=== PATIENT | male | born 1960 | race African-American/Black ===

== ENCOUNTER 2016-11-22 11:42 | Emergency (ER) | payer OTHER ==
[~2016-11-22] VITALS: Ht 165.1 cm; Wt 72.6 kg
[~2016-11-22 11:42] MED LIST: IBUPROFEN800 MG ORAL; NORCO 5-325 TA1 EACH ORAL
[2016-11-22 11:54] VITALS: BP 106/67
[2016-11-22] MEDS ORDERED: IBUPROFEN600 MG ORAL (12:14)
[2016-11-22 12:16] VITALS: BP 106/67
--- NOTE | 2016-11-22 13:44 | Emergency Room Report ---
History of Present Illness General Chief Complaint: Pain Source: Patient Present Illness HPI 56-year-old male no significant past medical history presenting with bump on right groin for 2 days. Patient states it occurred after he did some heavy lifting. Patient states that this has never occurred before. Patient states pain to area, intermittent, however has been able to reduce the swelling. Denies any abdominal pain nausea vomiting constipation. Patient has been passing gas Allergies: Coded Allergies: No Known Allergies (Unverified , 07/14/14) Patient History Past Medical History: see triage record Past Surgical History: none Pertinent Family History: none Reviewed Nursing Documentation: PMH: Agreed, PSxH: Agreed Nursing Documentation-PMH Hx Cardiac Problems: No Hx Hypertension: No Hx Pacemaker: No Hx Asthma: No Hx COPD: No Hx Diabetes: No Hx Cancer: No Hx Gastrointestinal Problems: No Hx Dialysis: No Hx Neurological Problems: No Hx Cerebrovascular Accident: No Hx Seizures: No Review of Systems All Other Systems: negative except mentioned in HPI Physical Exam Vital Signs Date Time Temp Pulse Resp B/P (MAP) Pulse Ox O2 Delivery O2 Flow Rate FiO2 11/22/16 11:49 97.9 56 15 103/64 97 Room Air Sp02 EP Interpretation: reviewed, normal General Appearance: normal inspection, well appearing, no apparent distress, alert, GCS 15, non-toxic Head: normocephalic, atraumatic Eyes: bilateral eye normal inspection, bilateral eye PERRL, bilateral eye EOMI ENT: normal ENT inspection, normal pharynx, normal voice, moist mucus membranes Neck: normal inspection, full range of motion, supple Respiratory: normal inspection, lungs clear, normal breath sounds, no respiratory distress, no retraction, no wheezing, speaking full sentences, chest symmetrical Cardiovascular #1: normal inspection, regular rate, rhythm, no edema, normal capillary refill Cardiovascular #2: 2+ radial (R), 2+ radial (L) Gastrointestinal: normal inspection, non tender, soft, non-distended, no guarding Genitourinary: no CVA tenderness, other - Right-sided inguinal hernia, reducible, mildly tender to palpation Musculoskeletal: normal inspection, back normal, normal range of motion, non- tender Neurologic: normal inspection, alert, oriented x3, responsive, motor strength/ tone normal, sensory intact, normal gait, speech normal Psychiatric: normal inspection, judgement/insight normal, memory normal Skin: normal inspection, normal color, no rash, warm/dry, well hydrated, normal turgor Medical Decision Making Diagnostic Impression: Primary Impression: Inguinal hernia ER Course 56 yo M. with right-sided inguinal swelling DDX: Reducible inguinal hernia Plan: Pain control ER course: Patient has remained stable during ED stay. Pain improved medications Disposition: Patient is to be discharged to home. Patient is instructed to follow up with their primary care doctor within 5 days. Patient is instructed to follow up with general surgeon within one week for followup for hernia Strict return precautions discussed with patient such as fever, chills, worsening/severe pain, nausea, vomiting, which may indicate severe illness. Patient verbalizes understanding and agrees with plan. Please note that this Emergency Department Report was dictated using [employer]Data[employer]al services assistant technology software, occasionally this can lead to erroneous entry secondary to interpretation by the dictation equipment Last Vital Signs Date Time Temp Pulse Resp B/P (MAP) Pulse Ox O2 Delivery O2 Flow Rate FiO2 11/22/16 12:16 98.0 58 17 106/67 98 Room Air Disposition: HOME, SELF-CARE Condition: Improved Scripts Ibuprofen* (MOTRIN*) 600 Mg Tablet 600 MG ORAL Q8H Y for For Pain, #30 TAB 0 Refills Prov: Ruben Sargent M.D. 11/22/16 Patient Instructions: Inguinal Hernia, Adult, [id number] Additional Instructions: Please followup with your primary care doctor within 5 days. Please followup with the general surgeon within one week for your inguinal hernia Is return to the emergency room if you are experiencing severe persistent pain, nausea vomiting, inability to have a bowel movement or pass gas Ruben Sargent M.D. Nov 22, 2016 13:44
== END 2016-11-22 12:30 | disposition home or self-care (01) ==
LOC: EMR 12:03
DX: K40.90 Unilateral inguinal hernia, without obstruction or gangrene, not specified as recurrent (principal)
CPT/HCPCS: 99283

== ENCOUNTER 2016-11-26 06:19 | Emergency (ER) | payer OTHER ==
[~2016-11-26] VITALS: Ht 165.1 cm; Wt 69.4 kg
[~2016-11-26 06:19] MED LIST changes: +IBUPROFEN600 MG ORAL
[2016-11-26 06:41] VITALS: BP 136/68
[2016-11-26] MEDS ORDERED: COLACE100 MG ORAL (06:56)
[2016-11-26 07:00] VITALS: BP 130/70
[2016-11-26 07:10] VITALS: BP 130/70
--- NOTE | 2016-11-26 08:39 | Emergency Room Report ---
History of Present Illness General Chief Complaint: Abdominal Pain Source: Patient Present Illness HPI Patient presents with complaints of right sided a little discomfort Patient reports that he was constipated for the past 2 days and he felt that pushing admit the area worse Patient reports contacting his primary physician Reports a consultation for specialty was made for 3 weeks However he does not feel that that is early enough Denies any vomiting denies any diarrhea Denies any other abdominal pain patient points to the right inguinal region for the discomfort Describes as achy and 3 at 10 Allergies: Coded Allergies: No Known Allergies (Unverified , 07/14/14) Patient History Past Medical History: see triage record Pertinent Family History: none Reviewed Nursing Documentation: PMH: Agreed, PSxH: Agreed Nursing Documentation-PMH Hx Cardiac Problems: No Hx Hypertension: No Hx Pacemaker: No Hx Asthma: No Hx COPD: No Hx Diabetes: No Hx Cancer: No Hx Gastrointestinal Problems: Yes - HERNIA Hx Dialysis: No Hx Neurological Problems: No Hx Cerebrovascular Accident: No Hx Seizures: No Review of Systems All Other Systems: negative except mentioned in HPI Physical Exam Vital Signs Date Time Temp Pulse Resp B/P (MAP) Pulse Ox O2 Delivery O2 Flow Rate FiO2 11/26/16 06:22 97.9 55 18 129/76 98 Room Air Sp02 EP Interpretation: reviewed, normal General Appearance: well appearing, no apparent distress Head: normocephalic, atraumatic Eyes: bilateral eye PERRL, bilateral eye EOMI ENT: hearing grossly normal, normal pharynx, TMs + canals normal, uvula midline Neck: full range of motion, supple, no meningismus, no bony tend Respiratory: lungs clear, normal breath sounds, no rhonchi, no respiratory distress, no retraction, no accessory muscle use Cardiovascular #1: normal peripheral pulses, regular rate, rhythm, no edema, no gallop, no JVD, no murmur Gastrointestinal: normal bowel sounds, non tender, soft, no mass, no organomegaly, non-distended, no guarding, no pulsatile mass, no rebound, hernia - Patient has a right-sided inguinal hernia which extends into the scrotal area , very soft on palpation Genitourinary: no CVA tenderness Musculoskeletal: normal inspection Neurologic: oriented x3, responsive, patient support representative III-XII nml as tested, motor strength/ tone normal, sensory intact Psychiatric: mood/affect normal Skin: normal color, no rash, warm/dry Lymphatic: normal inspection, no adenopathy Medical Decision Making Diagnostic Impression: Primary Impression: Inguinal hernia ER Course With the history exam and presentation, multiple differentials considered, including but not limited to appendicitis, gastritis, cholecystitis, diverticulitis Other differentials of incarcerated hernia, versus strangulated hernia considered Patient's hernia is very soft and easily reducible Patient is having appropriate bowel movements I did discuss with him possible CT imaging with oral contrast however this usually is a clinical evaluation was has not required this imaging After further discussion he is agreeable with this I did place him on stool softeners However the patient did leave prior to getting that prescription And stable for close outpatient follow Last Vital Signs Date Time Temp Pulse Resp B/P (MAP) Pulse Ox O2 Delivery O2 Flow Rate FiO2 11/26/16 07:10 97.6 68 19 130/70 100 Room Air Status: unchanged Disposition: HOME, SELF-CARE Condition: Stable Scripts Docusate Sodium* (COLACE*) 100 Mg Capsule 100 MG ORAL THREE TIMES A DAY, #60 CAP Prov: IRIS BANSAL D.O. 11/26/16 Referrals: NON PHYSICIAN (PCP) Patient Instructions: Inguinal Hernia, Adult, [id number] Additional Instructions: Patient is provided with the discharge instructions notified to follow up with primary doctor in the next 2-3 days otherwise return to the er with any worsening symptoms. Please note that this report is being documented using DGTS technology. This can lead to erroneous entry secondary to incorrect interpretation by the dictating instrument. IRIS BANSAL D.O. Nov 26, 2016 08:39
== END 2016-11-26 07:10 | disposition home or self-care (01) ==
LOC: EMR 06:44
DX: K40.90 Unilateral inguinal hernia, without obstruction or gangrene, not specified as recurrent (principal)
CPT/HCPCS: 99283

== ENCOUNTER 2017-04-10 16:57 | Emergency (ER) | payer OTHER ==
[~2017-04-10] VITALS: Ht 165.1 cm; Wt 72.6 kg
[~2017-04-10 16:57] MED LIST changes: +COLACE100 MG ORAL
[2017-04-10] MEDS ORDERED: NKM (17:10)
[2017-04-10 17:17] VITALS: BP 108/66
--- NOTE | 2017-04-10 18:31 | Emergency Room Report ---
History of Present Illness General Chief Complaint: Skin Rash/Abscess Source: Patient Present Illness HPI 57-year-old male presents to the emergency department complaining of non-itchy rash to the right upper lip/mustache area times one week. Patient reports that he first noticed what looked like a pimple that he later believes he aggravated with using tweezers and then shaving his face the next day. Patient denies fevers, chills, burning sensation prior to reduction, or previous history of similar episodes. Denies lesions elsewhere on the body. Denies lesions/rashes elsewhere on the body. Denies new medications or body washes or creams. Denies swelling of the lips, tongue , throat or airway. Denies wheezing, or shortness of breath. Denies recent travel, recent illness or ill contacts. denies blisters, oral lesions, or sloughing of the skin. Allergies: Coded Allergies: No Known Allergies (Unverified , 07/14/14) Patient History Past Medical History: see triage record Past Surgical History: none Pertinent Family History: none Reviewed Nursing Documentation: PMH: Agreed, PSxH: Agreed Nursing Documentation-PMH Past Medical History: No Stated History Hx Cardiac Problems: No Hx Hypertension: No Hx Pacemaker: No Hx Asthma: No Hx COPD: No Hx Diabetes: No Hx Cancer: No Hx Gastrointestinal Problems: Yes - HERNIA Hx Dialysis: No Hx Neurological Problems: No Hx Cerebrovascular Accident: No Hx Seizures: No Review of Systems All Other Systems: negative except mentioned in HPI Physical Exam Vital Signs Date Time Temp Pulse Resp B/P (MAP) Pulse Ox O2 Delivery O2 Flow Rate FiO2 04/10/17 17:07 98.8 64 16 108/66 96 Room Air Sp02 EP Interpretation: reviewed, normal General Appearance: no apparent distress, alert, GCS 15, non-toxic Head: normocephalic, atraumatic ENT: hearing grossly normal, normal voice Respiratory: lungs clear, normal breath sounds, speaking full sentences Cardiovascular #1: regular rate, rhythm Rectal: deferred Musculoskeletal: back normal, gait/station normal, normal range of motion, non- tender Neurologic: alert, oriented x3, responsive, motor strength/tone normal, sensory intact, normal gait, speech normal, grossly normal Psychiatric: judgement/insight normal Skin: normal color, warm/dry, well hydrated, rash - well localized area of the right lower cheek with multiple pustules and crusting. localized alopecia noted. no blisters. Lymphatic: no adenopathy Medical Decision Making PA Attestation Dr. Crouch is my supervising physician whom pt. management has been discussed with. Diagnostic Impression: Primary Impression: Folliculitis barbae ER Course 57-year-old male presents to the emergency department complaining of non-itchy rash to the right upper lip/mustache area times one week. Patient reports that he first noticed what looked like a pimple that he later believes he aggravated with using tweezers and then shaving his face the next day. Patient denies fevers, chills, burning sensation prior to reduction, or previous history of similar episodes. Denies lesions elsewhere on the body. Denies lesions/rashes elsewhere on the body. Denies new medications or body washes or creams. Denies swelling of the lips, tongue , throat or airway. Denies wheezing, or shortness of breath. Denies recent travel, recent illness or ill contacts. denies blisters, oral lesions, or sloughing of the skin. Ddx considered but are not limited to cellulitis, scabies, shingles, varicella, dermatitis, urticaria, eczema, tinea, viral exanthem, SJS Vital signs: are WNL, pt. is afebrile H&PE are most consistent with folliculitis barbae, no vesicles or blisters noted, no evidence of impending airway compromise. ORDERS: none required at this time, the diagnosis is clinical ED INTERVENTIONS: None required at this time. -I do not identify an emergent condition at this time. With current presentation , pt. is stable for close outpatient follow up and conservative treatment. D/ w pt. to return promptly to ED with worsening or new symptoms.- Pt. (and or responsible libertarian) verbalizes' understanding and agreement with proposed treatment plan.proposed treatment plan. DISCHARGE: At this time pt. is stable for d/c to home. Will provide printed patient care instructions, and any necessary prescriptions. Care plan and follow up instructions have been discussed with the patient prior to discharge. Last Vital Signs Date Time Temp Pulse Resp B/P (MAP) Pulse Ox O2 Delivery O2 Flow Rate FiO2 04/10/17 17:17 98.8 16 108/66 96 Room Air 04/10/17 17:07 64 Disposition: HOME, SELF-CARE Condition: Stable Scripts Terbinafine Hcl (LAMISIL AT) 12 Gm Gel..gram. 1 APPLIC TP BID, #12 GM Prov: Selena Mccartney 04/10/17 Cephalexin* (KEFLEX*) 500 Mg Capsule 500 MG ORAL EVERY 12 HOURS for 7 Days, #14 CAP 0 Refills Prov: Selena Mccartney 04/10/17 Patient Instructions: Rash Additional Instructions: Take medications as directed. Follow up with a Primary Care Provider in 3-5 days, even if your symptoms persist: MANAGER OF FINANCIAL Shravan is recommended. --Please review list of primary care clinics, if you do not already have a primary care provider Return sooner to ED if new symptoms occur, or current symptoms become worse. - Please note that this Emergency Department Report was dictated using [employer] worker technology software, occasionally this can lead to erroneous entry secondary to interpretation by the dictation equipment. Selena Mccartney Apr 10, 2017 18:31
[2017-04-10] MEDS ORDERED: LAMISIL AT12 GM TP ×2 (18:34→18:36)
[2017-04-10] MEDS ORDERED: CEPHALEXIN500 MG ORAL ×2 (18:34→18:36)
[2017-04-10 19:01] VITALS: BP 108/66
== END 2017-04-10 19:01 | disposition home or self-care (01) ==
LOC: EMR 17:30
DX: L73.9 Follicular disorder, unspecified (principal)
CPT/HCPCS: 99283

== ENCOUNTER 2017-06-19 09:24 | Emergency (ER) | payer OTHER ==
[~2017-06-19] VITALS: Ht 165.1 cm; Wt 72.6 kg
[~2017-06-19 09:24] MED LIST changes: +CEPHALEXIN500 MG ORAL; +LAMISIL AT12 GM TP; +NKM
[2017-06-19] MEDS ORDERED: Ketorolac 60mg Inj IM ONE (09:45)
[2017-06-19] MEDS ORDERED: Norco 5mg/325mg tab ORAL ONE (09:45)
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
[2017-06-19] MEDS ORDERED: IBUPROFEN600 MG ORAL (10:02)
[2017-06-19] MEDS ORDERED: ROBAXIN-750750 MG PO (10:02)
[2017-06-19 10:17] VITALS: BP 133/85
== END 2017-06-19 10:17 | disposition home or self-care (01) ==
LOC: EMR 09:45
DX: M54.5 Low back pain (principal); M54.2 Cervicalgia; V43.52XA Car driver injured in collision with other type car in traffic accident, initial encounter; Y92.410 Unspecified street and highway as the place of occurrence of the external cause
CPT/HCPCS: 96372; 99283

== ENCOUNTER 2017-09-03 21:02 | Emergency (ER) | payer OTHER ==
[~2017-09-03] VITALS: Ht 165.1 cm; Wt 72.6 kg
[~2017-09-03 21:02] MED LIST changes: +ROBAXIN-750750 MG PO
[2017-09-03 21:36] VITALS: BP 115/74
--- NOTE | 2017-09-03 21:38 | Emergency Room Report ---
History of Present Illness General Chief Complaint: Pain Source: Patient Present Illness HPI Patient has 2 complaints: 1 possible inguinal hernia R and 2 skin inflammation after shaving. Recently told he has a hydrocele instead of hernia. Scheduled for surgery Tuesday. Concerned if correct procedure. Another doctor again felt it was a hernia. No fevers, chills, chest pain, palpitations, nausea, vomiting, diarrhea, dysuria , abdominal pain, shortness of breath, depression, visual changes, headache. Allergies: Coded Allergies: No Known Allergies (Unverified , 07/14/14) Patient History Past Medical History: see triage record Social History: Denies: smoking Social History Narrative from home Reviewed Nursing Documentation: PMH: Agreed; PSxH: Agreed Nursing Documentation-PMH Past Medical History: No History, Except For Hx Cardiac Problems: No - FRACTURED TAILBONE Hx Hypertension: No Hx Pacemaker: No Hx Asthma: No Hx COPD: No Hx Diabetes: No Hx Cancer: No Hx Gastrointestinal Problems: Yes - HERNIA Hx Dialysis: No Hx Neurological Problems: No Hx Cerebrovascular Accident: No Hx Seizures: No Review of Systems All Other Systems: negative except mentioned in HPI Physical Exam Vital Signs Date Time Temp Pulse Resp B/P (MAP) Pulse Ox O2 Delivery O2 Flow Rate FiO2 09/03/17 21:04 98.0 42 16 115/74 96 Room Air 98.1 Sp02 EP Interpretation: reviewed, normal General Appearance: well appearing, no apparent distress Head: normocephalic, atraumatic Eyes: bilateral eye normal inspection, bilateral eye PERRL ENT: hearing grossly normal, normal voice Neck: full range of motion, supple Respiratory: no respiratory distress, speaking full sentences Gastrointestinal: soft, no mass, other - see genitalia, scaphoid Genitourinary: penis normal, other - palpable soft mass R scrotal sack seems to extend from inguinal canal Musculoskeletal: back normal Neurologic: alert, normal gait, grossly normal Psychiatric: mood/affect normal - argumentative with staff Skin: other - follicular inflammation shaft of penis and areas which have been shaved Medical Decision Making Diagnostic Impression: Primary Impression: Folliculitis Additional Impressions: Inguinal hernia Qualified Codes: K40.91 - Unilateral inguinal hernia, without obstruction or gangrene, recurrent Bradycardia ER Course Patient presents with a 2 problems. One is a question of a inguinal hernia. He has some question as to whether this is a hydrocele or hernia. He's been evaluated for this and is scheduled to have surgery on Tuesday. He states that he has pain medication at home and therefore no further evaluation is needed at this time. There is no significant tenderness in the scrotal area at this time. The second problem is a rash after shaving her pubic area. There is no evidence of abscess at this time. Differential includes cellulitis and folliculitis. This will be treated with local topical antibiotic ointment. During triage his heart rate was slow. The patient states she's never had a history of bradycardia in the past. He is not taking medications that would cause this. He denies any dizziness, chest pain, shortness of breath, palpitations. They're multiple etiologies however the patient is asymptomatic at this time. He states that he is going to have a preoperative evaluation by his doctors on Tuesday. There is no medical emergency at this time. The patient is stable for outpatient observation and treatment. Rhythm Strip Diag. Results Rhythm: no PVC's, no ectopy, other - evelyne Last Vital Signs Date Time Temp Pulse Resp B/P (MAP) Pulse Ox O2 Delivery O2 Flow Rate FiO2 09/03/17 21:52 98.1 43 16 115/74 96 Room Air 98.1 Status: unchanged Disposition: HOME, SELF-CARE Condition: Stable Scripts Bacitracin (Bacitracin) 28.4 Gm Oint...g. 1 APPLIC TOPIC BID, #20 GM Prov: Jewel Tan M.D. 09/03/17 Jewel Tan M.D. Sep 03, 2017 21:38
[2017-09-03] MEDS ORDERED: BACITRACIN15 GM TOPIC (21:40)
[2017-09-03 21:52] VITALS: BP 115/74
== END 2017-09-03 21:55 | disposition home or self-care (01) ==
LOC: EMR 21:49
DX: L73.9 Follicular disorder, unspecified (principal); K40.90 Unilateral inguinal hernia, without obstruction or gangrene, not specified as recurrent; R00.1 Bradycardia, unspecified
CPT/HCPCS: 99283

== ENCOUNTER 2018-06-02 11:02 | Emergency (ER) | payer SELFPAY ==
[~2018-06-02] VITALS: Ht 165.1 cm; Wt 72.6 kg
[~2018-06-02 11:02] MED LIST changes: +BACITRACIN15 GM TOPIC
--- NOTE | 2018-06-02 11:09 | NUR ---
ED Nurse Note: Patient is on the phone. Unable to obtain VS and information.
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
[2018-06-02] MEDS ORDERED: NKM (11:16)
[2018-06-02 11:19] VITALS: BP 122/59
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
--- NOTE | 2018-06-02 11:55 | NUR ---
ED Nurse Note: Called CT to take patient for CT
--- NOTE | 2018-06-02 12:06 | NUR ---
ED Nurse Note: Patient is going down to CT accompanied by Neal Kim
--- NOTE | 2018-06-02 12:19 | NUR ---
ED Nurse Note: patient is back from CT, will wait for further orders
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
[2018-06-02] MEDS ORDERED: ROBAXIN-750750 MG PO (12:38)
[2018-06-02] MEDS ORDERED: IBUPROFEN600 MG ORAL (12:38)
[2018-06-02 13:00] VITALS: BP 132/72
--- NOTE | 2018-06-02 13:00 | NUR ---
ER DISCHARGE NOTE: Patient is cleared to be discharged per ERMD, pt is aox4, on room air, with stable vital signs. pt was given dc and prescription instructions, pt was able to verbalize understanding, pt id band removed without complications. pt is able to ambulate with steady gait. pt took all belongings.
== END 2018-06-02 13:00 | disposition home or self-care (01) ==
LOC: EMR 11:33
DX: S09.90XA Unspecified injury of head, initial encounter (principal); V43.52XA Car driver injured in collision with other type car in traffic accident, initial encounter; Y92.9 Unspecified place or not applicable
CPT/HCPCS: 70450; 99284

== ENCOUNTER 2018-07-02 17:31 | Emergency (ER) | payer SELFPAY ==
[~2018-07-02] VITALS: Ht 165.1 cm; Wt 74.8 kg
[2018-07-02 17:37] VITALS: BP 122/81
--- NOTE | 2018-07-02 17:45 | NUR ---
ED Nurse Note: Patient walked into ED c/o irriation on the skin around left upper lip that started about 2 weeks ago. patient is alert awake x4 ambulatory breathing even and unlabored.
[2018-07-02] MEDS ORDERED: BACITRACIN-P28.35 GM TP (17:56)
--- NOTE | 2018-07-02 17:57 | Emergency Room Report ---
History of Present Illness General Chief Complaint: Skin Rash/Abscess Source: Patient Present Illness HPI 58-year-old male patient presents the ER complaining of outbreak on skin near his left lip for the past 2 weeks. Reports that he shaved his face 2 weeks ago and afterwards noted some mild erythema, states that he applied rubbing alcohol to the affected area. Denies drainage. Denies pain or pruritus. Denies blisters. Denies burning sensation. Denies drainage. Denies pus. Reports small rash noted in that area since that time. Denies fever, chest pain, shortness of breath. Denies other aggravating or relieving factors. Reports history of folliculitis in other areas of his body. States has not seen a hospital medical assistant. Allergies: Coded Allergies: No Known Allergies (Unverified , 07/14/14) Patient History Past Medical History: see triage record Reviewed Nursing Documentation: PMH: Agreed; PSxH: Agreed Nursing Documentation-PMH Past Medical History: No History, Except For Hx Hypertension: No Hx Pacemaker: No Hx Asthma: No Hx COPD: No Hx Diabetes: No Hx Cancer: No Hx Gastrointestinal Problems: Yes - HERNIA Hx Dialysis: No Hx Neurological Problems: No Hx Cerebrovascular Accident: No Hx Seizures: No Review of Systems All Other Systems: negative except mentioned in HPI Physical Exam Vital Signs Date Time Temp Pulse Resp B/P (MAP) Pulse Ox O2 Delivery O2 Flow Rate FiO2 07/02/18 17:37 98.8 58 17 122/81 96 Room Air Sp02 EP Interpretation: reviewed, normal General Appearance: well appearing, no apparent distress, alert, GCS 15, non- toxic Head: normocephalic, atraumatic Eyes: bilateral eye normal inspection, bilateral eye PERRL ENT: hearing grossly normal, normal pharynx, no angioedema, normal voice, uvula midline, moist mucus membranes Neck: full range of motion Respiratory: lungs clear, normal breath sounds, no rhonchi, no respiratory distress, no accessory muscle use, no wheezing, speaking full sentences Musculoskeletal: back normal, digits/nails normal, gait/station normal, normal range of motion, non-tender Psychiatric: mood/affect normal Skin: other - lateral to left side of motuh: hypopigmented area of skin consistent with healing folliculitis, no blisters, no impetigo lesions, no crusting Medical Decision Making PA Attestation Dr. Miller is my supervising Physician whom patient management has been discussed with. Diagnostic Impression: Primary Impression: Rash and other nonspecific skin eruption ER Course Pt. presents to the ED c/o rash on left side of face near mouth. Ddx considered but are not limited to atopic dermatitis, folliculitis, , allergic reaction, impetigo. Vital signs: are WNL, pt. is afebrile ER COURSE Rash on face near the left side of mouth consistent with healing folliculitis, advised patient not to shave. Advised patient follow-up with primary care provider. Discussed referral to dermatology. No erythema or edema, no's signs of cellulitis, patient denies drainage, no palpable mass, low suspicion for abscess formation. Does not require oral abx. Followup with dermatology. DISCHARGE: -Rx given for Bacitracin At this time pt. is stable for d/c to home. Patient resting comfortably, in no acute distress, nontoxic appearinge. Will provide printed patient care instructions, and any necessary prescriptions. Care plan and follow up instructions have been discussed with the patient prior to discharge. Patient provided with list of healthcare clinics to establish primary care physician. Patient instructed to follow-up with primary care provider in 3 - 5 days. Patient questions asked and answered. ER precautions given. Patient instructed to return to ER immediately for any new or worsening of symptoms including but not limited to increasing SOB, persistent fever. - Please note that this Emergency Department Report was dictated using [employer] cutter technology software, occasionally this can lead to erroneous entry secondary to interpretation by the dictation equipment. Last Vital Signs Date Time Temp Pulse Resp B/P (MAP) Pulse Ox O2 Delivery O2 Flow Rate FiO2 07/02/18 17:37 98.8 58 17 122/81 96 Room Air Disposition: HOME, SELF-CARE Condition: Stable Scripts Bacitracin/Polymyxin B Sulfate (BACITRACIN-POLYMYXIN OINTMENT) 28.35 Gm Oint...g. 1 APPLIC TP BID, #28 GM Prov: Hermann Moise 07/02/18 Patient Instructions: Folliculitis, Rash Additional Instructions: Followup with primary care provider in 3 -5 days. Request referral to dermatology as needed. Do not scratch or itch. Apply cool compresses to affected area. Do not shave face during this time. Take medications as directed. Patient questions asked and answered. ER precautions given, patient instructed to return to ER immediately for any new or worsening of symptoms. [facility] Hermann Moise Jul 02, 2018 17:57
[2018-07-02 17:59] VITALS: BP 122/81
--- NOTE | 2018-07-02 17:59 | NUR ---
ER DISCHARGE NOTE: Patient is cleared to be discharged per MICHAEL TREOJ, pt is aox4, on room air, with stable vital signs. pt was given dc and prescription instructions, pt was able to verbalize understanding, pt id band removed without complications. pt is able to ambulate with steady gait. pt took all belongings.
== END 2018-07-02 18:05 | disposition home or self-care (01) ==
LOC: EMR 18:00
DX: R21 Rash and other nonspecific skin eruption (principal)
CPT/HCPCS: 99282

== ENCOUNTER 2018-12-10 17:13 | Emergency (ER) | payer MEDICAID ==
[~2018-12-10] VITALS: Ht 165.1 cm; Wt 72.6 kg
[~2018-12-10 17:13] MED LIST changes: +BACITRACIN-P28.35 GM TP
--- NOTE | 2018-12-10 17:30 | NUR ---
ED Nurse Note: Patient walked into ED from home due to scabs on bilateral feet for 1 week. patient is alert awake x4 ambulatory steady gait, breathing unlabored and even, speaking in full sentences.
[2018-12-10] MEDS ORDERED: Bicillin LA 2.4MMU/4ML SYR IM ONE (17:45)
[2018-12-10] MEDS ORDERED: CLOTRIMAZOLE15 GM TOPIC (17:48)
[2018-12-10 17:58] VITALS: BP 123/79
[2018-12-10 17:59] VITALS: BP 123/79
--- NOTE | 2018-12-10 17:59 | NUR ---
ER DISCHARGE NOTE: Patient is cleared to be discharged per ERMD, pt is aox4, on room air, with stable vital signs. pt was given dc instructions, pt was able to verbalize understanding, pt is able to ambulate with steady gait. pt took all belongings.
--- NOTE | 2018-12-12 14:20 | Emergency Room Report ---
History of Present Illness General Chief Complaint: Skin Rash/Abscess Source: Patient Present Illness HPI 58-year-old male's ED for evaluation. States he is got a lesion to his penis x1 week. States it is burning, itchy. Denies any discharge. Concern for STD. denies any urethral discharge. Denies any scrotal pain. Also states there are blisters to his feet bilaterally. States he has been walking all day every day. States his shoes are old. States his socks are old. States he is homeless. No other aggravating relieving factors. Denies any other associated symptoms Allergies: Coded Allergies: No Known Allergies (Unverified , 07/14/14) Patient History Past Medical History: other - hernia Past Surgical History: none Pertinent Family History: none Social History: Denies: smoking, alcohol use, drug use Immunizations: UTD Reviewed Nursing Documentation: PMH: Agreed; PSxH: Agreed Nursing Documentation-PMH Past Medical History: No History, Except For Hx Hypertension: No Hx Pacemaker: No Hx Asthma: No Hx COPD: No Hx Diabetes: No Hx Cancer: No Hx Gastrointestinal Problems: Yes - HERNIA Hx Dialysis: No Hx Neurological Problems: No Hx Cerebrovascular Accident: No Hx Seizures: No Review of Systems All Other Systems: negative except mentioned in HPI Physical Exam Vital Signs Date Time Temp Pulse Resp B/P (MAP) Pulse Ox O2 Delivery O2 Flow Rate FiO2 12/10/18 17:21 98.8 67 20 123/79 (94) 97 Room Air Sp02 EP Interpretation: reviewed, normal General Appearance: no apparent distress, alert, GCS 15, non-toxic Head: normocephalic, atraumatic Eyes: bilateral eye normal inspection, bilateral eye PERRL ENT: hearing grossly normal, normal pharynx, no angioedema, normal voice Neck: full range of motion, supple/symm/no masses Respiratory: chest non-tender, lungs clear, normal breath sounds, speaking full sentences Cardiovascular #1: regular rate, rhythm, no edema Cardiovascular #2: 2+ carotid (R), 2+ carotid (L), 2+ radial (R), 2+ radial (L) , 2+ dorsalis pedis (R), 2+ dorsalis pedis (L) Gastrointestinal: normal bowel sounds, non tender, soft, non-distended, no guarding, no rebound Rectal: deferred Genitourinary: no CVA tenderness, other - circular erythematous lesion on penis shaft, no discharge Musculoskeletal: back normal, gait/station normal, normal range of motion, non- tender Neurologic: alert, oriented x3, responsive, motor strength/tone normal, sensory intact, speech normal Psychiatric: judgement/insight normal, memory normal, mood/affect normal, no suicidal/homicidal ideation Reflexes: 3+ bicep (R), 3+ bicep (L), 3+ tricep (R), 3+ tricep (L), 3+ knee (R) , 3+ knee (L) Skin: other - blisters to both feet Lymphatic: no adenopathy Medical Decision Making Diagnostic Impression: Primary Impression: Blister of foot Qualified Codes: S90.829A - Blister (nonthermal), unspecified foot, initial encounter Additional Impression: Penile lesion ER Course Hospital Course 58 yo M presents with lesion on penis. blisters on feet Differential diagnoses include: trichimonas, gonorrhea, chlamydia Clinical course Patient placed on stretcher. After initial history physical exam reveals a middle aged male in no acute distress. Circular lesion on the penis. No discharge. No scrotal tenderness. There are also blisters on the feet bilaterally. No signs of cellulitis. discussed findings with patient. Concerning for syphillis. Given penicillin injection. Homeless checklist completed. Will discharge with topical antifungal cream for feet. Will provide PMD referrals Diagnosis - blister of foot, penile lesion Stable and discharged home with prescriptions for Rx clotrimazole. Instructed to followup with PMD. Return to ED if symptoms recur or worsen Last Vital Signs Date Time Temp Pulse Resp B/P (MAP) Pulse Ox O2 Delivery O2 Flow Rate FiO2 12/10/18 17:59 98.8 73 20 123/79 97 Room Air Status: improved Disposition: HOME, SELF-CARE Condition: Stable Scripts Clotrimazole* (LOTRIMIN*) 15 Gm Cream..g. 1 APPLIC TOPIC TWICE A DAY, #15 GM Prov: Miguel Miller MD 12/10/18 Referrals: NON PHYSICIAN (PCP) [facility] Patient Instructions: Syphilis Miguel Miller MD Dec 12, 2018 14:20
== END 2018-12-10 17:50 | disposition home or self-care (01) ==
LOC: EMR 17:50
DX: R21 Rash and other nonspecific skin eruption (principal)
CPT/HCPCS: 96372; Z7502; 99283

== ENCOUNTER 2018-12-23 15:16 | Emergency (ER) | payer MEDICAID ==
[~2018-12-23] VITALS: Ht 165.1 cm; Wt 72.6 kg
[~2018-12-23 15:16] MED LIST changes: +CLOTRIMAZOLE15 GM TOPIC
[2018-12-23 15:59] VITALS: BP 111/69
--- NOTE | 2018-12-23 16:15 | Emergency Room Report ---
History of Present Illness General Chief Complaint: Skin Rash/Abscess Source: Patient Present Illness HPI 58-year-old male presents to the emergency department requesting reevaluation for a painless penile lesion that he has had x2 weeks. Patient previously received IM penicillin injection and he states he has been applying antibiotic ointment. Patient also reports that at the same visit he was treated for pedal fungal infection. Patient denies fevers, chills, swollen tender lymph nodes, joint pain, nausea, vomiting, lesions elsewhere on his body. Patient denies penile discharge, dysuria, testicular pain or tenderness. Patient denies recent unprotected intercourse or suspicion of STI. No other aggravating or relieving factors at this time. Allergies: Coded Allergies: No Known Allergies (Unverified , 07/14/14) Patient History Past Medical History: see triage record Past Surgical History: none Pertinent Family History: none Immunizations: UTD Reviewed Nursing Documentation: PMH: Agreed; PSxH: Agreed Nursing Documentation-PMH Past Medical History: No History, Except For Hx Hypertension: No Hx Pacemaker: No Hx Asthma: No Hx COPD: No Hx Diabetes: No Hx Cancer: No Hx Gastrointestinal Problems: Yes - HERNIA Hx Dialysis: No Hx Neurological Problems: No Hx Cerebrovascular Accident: No Hx Seizures: No Review of Systems All Other Systems: negative except mentioned in HPI Physical Exam Vital Signs Date Time Temp Pulse Resp B/P (MAP) Pulse Ox O2 Delivery O2 Flow Rate FiO2 12/23/18 15:19 97.9 57 17 111/69 (83) 99 Room Air Sp02 EP Interpretation: reviewed, normal General Appearance: no apparent distress, alert, GCS 15, non-toxic Head: normocephalic, atraumatic Eyes: bilateral eye normal inspection, bilateral eye PERRL ENT: hearing grossly normal, normal voice Neck: full range of motion Respiratory: lungs clear, normal breath sounds, speaking full sentences Cardiovascular #1: regular rate, rhythm Gastrointestinal: non tender, soft Genitourinary: no CVA tenderness, other - painless circule ulcerated lesion with some white opaque d/c on the distal aspect of the penis, no LAD, no blisters, no vesicles, no masses. no penile d/c Musculoskeletal: back normal, gait/station normal, normal range of motion, non- tender Neurologic: alert, oriented x3, responsive, motor strength/tone normal, sensory intact, speech normal, grossly normal Psychiatric: judgement/insight normal Skin: other - painless circule ulcerated lesion with some white opaque d/c on the distal aspect of the penis, no LAD, no blisters, no vesicles, no masses. no penile d/c Medical Decision Making PA Attestation Dr. Retana Is my supervising Physician whom patient management has been discussed with. Diagnostic Impression: Primary Impression: Penile lesion ER Course 58-year-old male presents to the emergency department requesting reevaluation for a painless penile lesion that he has had x2 weeks. Patient previously received IM penicillin injection and he states he has been applying antibiotic ointment. Patient also reports that at the same visit he was treated for pedal fungal infection. Patient denies fevers, chills, swollen tender lymph nodes, joint pain, nausea, vomiting, lesions elsewhere on his body. Patient denies penile discharge, dysuria, testicular pain or tenderness. Patient denies recent unprotected intercourse or suspicion of STI. No other aggravating or relieving factors at this time. Ddx considered but are not limited to UTi , Urethritis, LGV, STI, Stone, Cystitis, prostatitis, syphilis, herpes, mona, just to name a few. Lead Inspector for PE was: Melissa JUÁREZ Vital signs: are WNL, pt. is afebrile H&PE are most consistent with painless single ulcer suspicious for syphilis, pt. received correct tx at last visit. will give antifungal ointment just to cover all possible microorganisms. ORDERS: - None required at this time the dx. is clinical ED INTERVENTIONS: -None required at this time. DISCHARGE: At this time pt. is stable for d/c to home. Will provide printed patient care instructions, and any necessary prescriptions. Care plan and follow up instructions have been discussed with the patient prior to discharge. Last Vital Signs Date Time Temp Pulse Resp B/P (MAP) Pulse Ox O2 Delivery O2 Flow Rate FiO2 12/23/18 15:59 97.9 78 17 111/69 99 Room Air Disposition: HOME, SELF-CARE Condition: Serious Scripts Nystatin* (NYSTATIN*) 15 Gm Cream..g. 1 APPLIC TOPIC THREE TIMES A DAY, #15 GM Prov: Selena Mccartney 12/23/18 Patient Instructions: Rash, [id number] Additional Instructions: Take medications as directed. Follow up with a Primary Care Provider in 3-5 days for DERMATOLOGY REFERRAL , even if your symptoms have resolved. --Please review list of primary care clinics, if you do not already have a primary care provider Return sooner to ED if new symptoms occur, or current symptoms become worse. - Please note that this Emergency Department Report was dictated using [employer] technology software, occasionally this can lead to erroneous entry secondary to interpretation by the dictation equipment. Selena Mccartney Dec 23, 2018 16:15
[2018-12-23] MEDS ORDERED: NYSTATIN15 GM TOPIC (16:36)
--- NOTE | 2018-12-23 16:40 | NUR ---
ER DISCHARGE NOTE: Patient is cleared to be discharged per ERMD, pt is aox4, on room air, with stable vital signs. pt was given dc and prescription instructions, pt was able to verbalize understanding, pt is able to ambulate with steady gait. pt took all belongings.
[2018-12-23 16:45] VITALS: BP 111/69
== END 2018-12-23 16:45 | disposition home or self-care (01) ==
LOC: EMR 15:50
DX: L98.9 Disorder of the skin and subcutaneous tissue, unspecified (principal)
CPT/HCPCS: 99282